=== PATIENT | male | born 1970 | race Caucasian/White ===

== ENCOUNTER → 2021-01-09 | Outpatient (CLI) | payer OTHER ==
[~2021-01-09] MED LIST: OMEP20TA63 PO; allergy medicine
== END ==
LOC: LAB 09:30
PROVIDERS: ATTEND Nurse Anesthetist, Certified Registered
DX: Z01.812 Encounter for preprocedural laboratory examination (principal); Z20.822 Contact with and (suspected) exposure to COVID-19
CPT/HCPCS: U0003

== ENCOUNTER → 2021-01-13 | Day surgery (SDC) | payer OTHER ==
[~2021-01-13] MED LIST changes: +GLYCOPYRROLATE 1 MG/5 ML VIAL. ONE; +IPRATRPIUM/ALBUTEROL 0.5/2.5MG 3 ML NEBU. NEB PRN; +IV RINGERS SOLUTION,LACTATED 1,000 ML IV SCH; +LIDOCAINE 2% PF 5 ML VIAL. ONE; +MIDAZOLAM HCL PF 2 MG/2 ML VIAL. IV ONE; +ONDANSETRON PF 4 MG/2 ML VIAL. IV PRN; +PROPOFOL 10,000 MCG/ML (20ML) VIAL IV ONE
[2021-01-13 10:05] VITALS: BP 120/83
--- NOTE | 2021-01-20 14:20 | PATHOLOGY ---
[facility] Accession Number: [id number] . 01 Material submitted: . colon - TRANSVERSE COLON POLYP BIOPSY. Modifiers: transverse . 01 Clinical history: . REASON FOR VISIT: COLONOSCOPY PRE-OPERATIVE DIAGNOSIS:SCREENING OPERATIVE PROCEDURE: COLON . 02 Diagnosis: Colon biopsy, transverse colon polyp: - Tubular adenoma. . ([facility]:mm; 01/19/2021) [facility] 01/19/2021 1619 Local . 02 Comment: There is no high grade dysplasia or evidence of malignancy. . ([facility]:mml; 01/19/2021) . 02 Electronically signed: . Igor Moreland MD, Pathologist NPI- [id number] . 01 Gross description: . Received in formalin labeled "Lizeth, Brandyn, transverse polyp" is a fragment of sharma-brown soft tissue measuring 0.5 x 0.4 x 0.3 cm. The specimen is submitted entirely in A1. ([facility]; 01/16/2021) G[facility]/GZA 01/16/2021 1443 Local . 02 Pathologist provided ICD-10: D12.3 . 02 CPT . 479696 Specimen Comment: A courtesy copy of this report has been sent to [phone], [phone] Specimen Comment: [id number] Specimen Comment: Report sent to / DR QUIROGA Performed at: 01 [facility] [address], [place] [id number] MD Evaristo Rader MD Phone: [phone] Performed at: 02 [facility] [address] [place], [place] [id number] MD Igor Moreland MD Phone: [phone]
== END | disposition home or self-care (01) ==
LOC: SURG 07:58
PROVIDERS: ATTEND Emergency Medicine
DX: Z12.11 Encounter for screening for malignant neoplasm of colon (principal); K57.30 Diverticulosis of large intestine without perforation or abscess without bleeding; K63.5 Polyp of colon; K63.89 Other specified diseases of intestine; Z72.89 Other problems related to lifestyle
CPT/HCPCS: 45380; J2001; J2704; J3490; J7120

== ENCOUNTER → 2021-10-27 | Outpatient (CLI) | payer OTHER ==
[2021-01-13 10:05] VITALS: BP 120/83
[~2021-10-27] MED LIST changes: -GLYCOPYRROLATE 1 MG/5 ML VIAL. ONE; +IOHEXOL 240 MG/ML 50ML VIAL. ONE; +IOHEXOL 240 MG/ML 50ML VIAL. PO ONE; +IOHEXOL 300 MG/ML 75 ML VIAL. IV ONE; -IPRATRPIUM/ALBUTEROL 0.5/2.5MG 3 ML NEBU. NEB PRN; -IV RINGERS SOLUTION,LACTATED 1,000 ML IV SCH; -LIDOCAINE 2% PF 5 ML VIAL. ONE; -MIDAZOLAM HCL PF 2 MG/2 ML VIAL. IV ONE; -ONDANSETRON PF 4 MG/2 ML VIAL. IV PRN; -PROPOFOL 10,000 MCG/ML (20ML) VIAL IV ONE
--- NOTE | 2021-10-27 11:03 | RAD ---
Examination: CT of the abdomen pelvis with oral and IV contrast HISTORY: History of lower abdominal pain COMPARISON: None available TECHNIQUE: Axial CT images of the abdomen pelvis were performed with oral and IV contrast. Coronal an d sagittal reformats are performed. Exposure: One or more of the following individualized dose reduction techniques were utilized for th is examination: 1. Automated exposure control 2. Adjustment of the mA and/or kV according to patien t size 3. Use of iterative reconstruction technique FINDINGS: 3 mm nodule identified in the right middle lobe of the lung. No evidence of free air identified in t he abdomen. Mild degree attenuation within the liver likely hepatic steatosis. The spleen, adrenals g rossly appears unremarkable. The gallbladder is mildly distended. The stomach is mildly distended. Th e visualized pancreas grossly appears unremarkable. The small bowel is nondilated. The appendix is no rmal. Moderate amount of feces and gas identified in the colon particularly in the rectum... The bila teral kidneys enhance symmetrically. The urinary bladder is mildly distended. Mild degenerative naqvi es lumbar spine. IMPRESSION: 1. No acute intra-abdominal findings. 2. Moderate amount of feces and gas identified in the colon particularly in the rectum. Correlate fo r constipation. 3. Hepatic steatosis. 4. 3 mm nodule identified in the right middle lobe of the lung. Electronically signed by: See Gaines MD (10/27/2021 11:01 AM) [id number]
== END ==
LOC: CT 09:15
PROVIDERS: ATTEND Family Medicine
DX: R91.1 Solitary pulmonary nodule (principal); K76.0 Fatty (change of) liver, not elsewhere classified; N32.89 Other specified disorders of bladder; K59.00 Constipation, unspecified; K82.8 Other specified diseases of gallbladder; M47.816 Spondylosis without myelopathy or radiculopathy, lumbar region; Z83.71 Family history of colonic polyps
CPT/HCPCS: 74177; Q9967